=== PATIENT | male | born 1995 | race Caucasian/White ===

== ENCOUNTER 2017-12-17 17:12 | Emergency (ER) | payer OTHER, SELFPAY ==
[2017-12-17 17:14] VITALS: BP 121/66; PULSE 81; RESP 17; TEMP 37.5; O2SAT 96; BMI 22.1
--- NOTE | 2017-12-17 18:12 | CT_ITS ---
STUDY: CTA NECK WITH CONTRAST REASON FOR EXAM: Male, 22 years old. Stiff neck and headache. RADIATION DOSAGE (If Supplied By Facility): CTDIvol = ( 19.55 ) mGy, DLP = ( 395.44 ) mGycm TECHNIQUE: CT angiography with multi-detector data acquisition was performed from the aortic arch to the skull base following intravenous administration of 75 ml of Isovue 370 contrast. MIP images were reconstructed from the axial data set. Post-processing of the angiographic images was performed, with multiplanar reformation and 3D reconstruction. Individualized dose optimization techniques were used for this CT. COMPARISON: None. FINDINGS: AORTIC ARCH: Normal visualized aortic arch. Normal origins of the brachiocephalic, left common carotid, and left subclavian arteries. RIGHT CAROTID ARTERIES: Normal right common carotid artery (CCA). Normal right common carotid bulb. Normal origin of the right internal carotid (ICA) artery without a hemodynamically significant stenosis. Normal visualized cervical portion of the right internal carotid artery. Normal origin of the right external carotid artery (ECA). LEFT CAROTID ARTERIES: Normal left common carotid artery (CCA). Normal left common carotid bulb. Normal origin of the left internal carotid (ICA) artery without a hemodynamically significant stenosis. Normal visualized cervical portion of the left internal carotid artery. Normal origin of the left external carotid artery (ECA). VERTEBRAL ARTERIES: Normal bilateral vertebral arteries. CT/CTA Neck W/WO Contrast IMPRESSION: Normal bilateral cervical carotid and vertebral arteries. Electronically Signed: Bk Freed MD at 19:19 EDT , Service support ,
--- NOTE | 2017-12-17 18:12 | ED.VISSUMM ---
- ER Visit Summary Date of Service: 12/17/17 Chief Complaint: Left-sided neck pain History of Present Illness: The patient is a 22 M presenting with left-sided neck pain ?1 week. Patient states that he went to his chiropractor for routine visit and had his neck manipulated a week ago. The next day he went swimming. Following swimming he began having pain in the left side of his neck. No direct trauma to his neck. He denies fever or recent illness. He has not taken any medication at home. He saw his chiropractor again this week and he manipulated his neck again. He had no improvement with this. Physical Examination: Vitals are stable. Patient is afebrile. Alert no acute distress. HEENT exam is unremarkable. Neck is left paraspinal muscle tenderness, no midline tenderness, no meningismus Lungs are clear and equal bilaterally. Heart is regular rate and rhythm. Abdomen is soft nontender nondistended. Extremities are unremarkable. Skin is warm and dry. No focal neurologic deficit. Normal strength and sensation Remainder of exam is unremarkable. Emergency Department Course and Treatment: Patient is given Valium p.o. with improvement of his neck pain. CTA neck: normal bilateral cervical carotid and vertebral arteries. On reevaluation, patient is resting comfortably. He is given a prescription for Flexeril. He is advised to follow-up with his primary care physician. Advised return to ED if worsening complaints. Disposition: Discharged home Impression: Neck strain This note was generated with [employer] dictation software. It may contain incorrect words, spelling, and punctuation that were not noted in review of the chart prior to signing ED Disposition - Plan for ED Patient: Chief Complaint: Other, Pain/Inj Referrals: Care Physician,No Primary [NON-STAFF] -
[2017-12-17] MEDS: diazePAM 5 MG Tablet PO (18:18)
--- NOTE | 2017-12-17 20:12 | ED.DEP ---
ED Disposition - Plan for ED Patient: Chief Complaint: Other, Pain/Inj Instructions: ED Sprain Strain Neck Prescriptions: Cyclobenzaprine [Flexeril] 10 mg PO TID PRN #20 tablet PRN Reason: Muscle Spasm Referrals: Care Physician,No Primary [NON-STAFF] -
[2017-12-17 20:21] VITALS: BP 121/71; PULSE 78; RESP 16; O2SAT 98
== END 2017-12-17 20:23 | disposition home or self-care (01) ==
PROVIDERS: Emergency Provider Emergency Medicine; Family Provider Family Medicine; PCP Family Medicine
DX: S16.1XXA Strain of muscle, fascia and tendon at neck level, initial encounter (principal); X58.XXXA Exposure to other specified factors, initial encounter; Y93.9 Activity, unspecified; Y92.9 Unspecified place or not applicable; Z72.0 Tobacco use
CPT/HCPCS: 70498; 99284; Q9967; A4216